=== PATIENT | female | born 1995 | race Caucasian/White ===

== ENCOUNTER 2020-07-15 16:23 | Outpatient (REF) | payer BC, SELFPAY ==
[2020-07-17 13:50] LABS: COVID-19 RT-PCR UVMMC Result Negative (Negative)
== END 2020-07-15 16:24 | disposition home or self-care (01) ==
LOC: NCHCN 16:23
PROVIDERS: Visit Provider Physician Assistant
DX: Z20.822 Contact with and (suspected) exposure to COVID-19 (principal); J02.9 Acute pharyngitis, unspecified
CPT/HCPCS: U0003

== ENCOUNTER 2020-08-16 19:04 | Outpatient (REF) | payer BC, SELFPAY ==
[2020-08-19 15:10] LABS: COVID-19 RT-PCR UVMMC Result Negative (Negative)
== END 2020-08-16 19:05 | disposition home or self-care (01) ==
LOC: LBN 19:04
PROVIDERS: Visit Provider Physician Assistant Medical
DX: J02.9 Acute pharyngitis, unspecified (principal); Z20.822 Contact with and (suspected) exposure to COVID-19
CPT/HCPCS: U0003; 87070

== ENCOUNTER 2020-08-23 20:06 | Outpatient (REF) | payer BC, SELFPAY ==
[2020-08-27 23:35] LABS: Chlamydia amplified RNA Negative (Negative); N gonorrhoeae amplified RNA Negative (Negative)
== END 2020-08-23 20:07 | disposition home or self-care (01) ==
LOC: LBN 20:06
PROVIDERS: Visit Provider Physician Assistant
DX: J02.9 Acute pharyngitis, unspecified (principal)
CPT/HCPCS: 87491; 87591